=== PATIENT | male | born 1990 | race Caucasian/White ===

== ENCOUNTER 2018-09-09 16:46 | Emergency (ER) | payer OTHER ==
[~2018-09-09] VITALS: Ht 177.8 cm; Wt 77.1 kg
[~2018-09-09 16:46] MED LIST: ALBUTEROL2.5 MG/3 M INH
[2018-09-09 16:55] VITALS: BP 128/78
--- NOTE | 2018-09-09 17:00 | Emergency Room Report ---
History of Present Illness General Chief Complaint: Allergic Reaction Source: Patient Present Illness HPI Patient is a 28-year-old male who presented after increased tongue and facial swelling. Patient had prior history of multiple food allergies which include nuts and legumes. Patient reportedly had been eating at a [employer] restaurant and began having increased tongue swelling as well as lip burning. He stated he took some Benadryl at location. He subsequently used Epinephrine autoinjector. Allergies: Uncoded Allergies: NUTS (Allergy, Unknown, 09/09/18) Patient History Reviewed Nursing Documentation: PMH: Agreed; PSxH: Agreed Nursing Documentation-PM Past Medical History: No History, Except For Hx Asthma: Yes Review of Systems All Other Systems: negative except mentioned in HPI Physical Exam Vital Signs Date Time Temp Pulse Resp B/P (MAP) Pulse Ox O2 Delivery O2 Flow Rate FiO2 09/09/18 16:42 98.2 87 18 132/76 97 Room Air Sp02 EP Interpretation: reviewed, normal General Appearance: normal inspection, well appearing, no apparent distress, alert, GCS 15 Head: atraumatic ENT: normal ENT inspection, hearing grossly normal, normal pharynx, no angioedema, normal voice Neck: normal inspection, full range of motion, supple, no bony tend Respiratory: normal inspection, lungs clear, normal breath sounds, no respiratory distress, no retraction, no wheezing Cardiovascular #1: regular rate, rhythm, no edema Gastrointestinal: normal inspection, normal bowel sounds, non tender, soft, no guarding, no hernia Genitourinary: no CVA tenderness Musculoskeletal: normal inspection, back normal, normal range of motion Neurologic: normal inspection, alert, oriented x3, responsive, budget record clerk III-XII nml as tested, speech normal Psychiatric: normal inspection, judgement/insight normal, mood/affect normal Skin: normal inspection, normal color, no rash Medical Decision Making Diagnostic Impression: Primary Impression: Allergic reaction ER Course Presented for allergic reaction. Differential diagnosis include was not limited to anaphylaxis, anaphylactoid reaction, contact anxiety among others. Patient has a benign exam and does not appear to require any further imaging or laboratory testing at this time. Patient was noted to have recently using EpiPen. He was given prescription for medications for allergy. He was given prednisone while in the emergency department. Patient was advised to return if any worsening of condition. Last Vital Signs Date Time Temp Pulse Resp B/P (MAP) Pulse Ox O2 Delivery O2 Flow Rate FiO2 09/09/18 16:42 98.2 87 18 132/76 97 Room Air Status: improved Disposition: HOME, SELF-CARE Condition: Stable Scripts Prednisone* (PREDNISONE*) 20 Mg Tablet 40 MG ORAL DAILY, #8 TAB Prov: Theo Bauer MD 09/09/18 Epinephrine (Epipen 2-R[place]o) 0.3 Mg/0.3 Ml Auto.injct 0.3 MG IM ONCE, #1 EA Prov: Theo Bauer MD 09/09/18 Theo Bauer MD Sep 09, 2018 17:00
[2018-09-09] MEDS ORDERED: EPIPEN 2-P0.3 MG/0.3 IM (18:34)
[2018-09-09] MEDS ORDERED: PREDNISONE20 MG ORAL (18:34)
[2018-09-09 18:39] VITALS: BP 125/70
== END 2018-09-09 18:50 | disposition home or self-care (01) ==
LOC: EDBD 16:46 → EMR 17:20
DX: T78.40XA Allergy, unspecified, initial encounter (principal); X58.XXXA Exposure to other specified factors, initial encounter; J45.909 Unspecified asthma, uncomplicated; Z91.018 Allergy to other foods
CPT/HCPCS: 99282; J7512